=== PATIENT | female | born 1975 | race Hispanic/Latino ===

== ENCOUNTER 2022-09-11 11:17 | Emergency (ER) | payer OTHER ==
[~2022-09-11] VITALS: Ht 160 cm; Wt 77.1 kg
[2022-09-11 14:12] VITALS: BP 177/98
== END 2022-09-11 13:31 | disposition home or self-care (01) ==
LOC: ER 11:28
DX: S00.83XA Contusion of other part of head, initial encounter (principal); S20.212A Contusion of left front wall of thorax, initial encounter; S16.1XXA Strain of muscle, fascia and tendon at neck level, initial encounter; V43.52XA Car driver injured in collision with other type car in traffic accident, initial encounter; Y92.488 Other paved roadways as the place of occurrence of the external cause; F41.9 Anxiety disorder, unspecified; F90.9 Attention-deficit hyperactivity disorder, unspecified type
CPT/HCPCS: 70450; 71046; 72125; 99284

== ENCOUNTER 2025-02-16 08:13 | Emergency (ER) | payer BC, OTHER ==
[~2025-02-16] VITALS: Ht 160 cm; Wt 77.1 kg
[2025-02-16 08:15] VITALS: PULSE 110; RESP 16; TEMP 98.5
[2025-02-16] MEDS: ACETAMINOPHEN 325 MG TAB PO ONE (08:35)
[2025-02-16 08:55] LABS: CORONAVIRUS COVID-19 AG NEGATIVE (NEGATIVE); INFLUENZA A AG NEGATIVE (NEGATIVE); INFLUENZA B AG NEGATIVE (NEGATIVE)
[2025-02-16 09:45] VITALS: BP 121/77; PULSE 101; RESP 16; TEMP 98.9; O2SAT 99
== END 2025-02-16 09:46 | disposition home or self-care (01) ==
LOC: ER 08:18
DX: R50.9 Fever, unspecified (principal); B34.9 Viral infection, unspecified; R05.9 Cough, unspecified; I10 Essential (primary) hypertension; G47.30 Sleep apnea, unspecified; I73.00 Raynaud's syndrome without gangrene; G89.29 Other chronic pain
CPT/HCPCS: 99283